=== PATIENT | male | born 2000 | race Caucasian/White ===

== ENCOUNTER 2019-04-14 19:05 | Emergency (ER) | payer MEDICAID, OTHER ==
[~2019-04-14] VITALS: Ht 185.4 cm; Wt 64.2 kg
[~2019-04-14 19:05] MED LIST: CEFP250S5; D-ME473S42; DOXY100C42 PO; TYLENOL; tylenol
--- NOTE | 2019-04-14 20:00 | ED Integumentary General ---
General Chief Complaint: Allergic Reaction Stated Complaint: [facility] Nursing Triage Note: STARTED TAKING NEW PRESCRIPTION BACTRIM TODAY FOR A "BITE ON HIS BACK" FEVER TODAY AT 1730 TOOK TYLENOL 1000 IS NOW AFEBRILE. Source: patient Exam Limitations: no limitations History of Present Illness Date Seen by Provider: Apr 14, 2019 Time Seen by Provider: 19:55 Initial Comments To ER come in by grandmother with reports of a suspected allergic reaction, he started Bactrim today for a suspected spider bite to the left mid back. He had a fever today up to 102. This began with a itchy bump to the left side of his back noticed yesterday, he does not recall anything biting him. He reports some general malaise and fever, body aches. He was seen by urgent care today given Bactrim. Timing/Duration: just prior to arrival Severity: moderate Location: torso Associated Symptoms: denies symptoms Allergies and Home Medications Allergies Coded Allergies: Fluticasone (Unverified Allergy, Mild, 04/17/09) Ibuprofen (Unverified Allergy, Mild, 04/17/09) Penicillins (Unverified Allergy, Mild, CAN TAKE CEPHALOSPORINS, 04/18/09) Salmeterol (Unverified Allergy, Mild, 04/17/09) Home Medications Doxycycline Monohydrate 100 Mg Capsule, 100 MG PO BID, (Reported) Patient Home Medication List Home Medication List Reviewed: Yes Review of Systems Review of Systems Constitutional: see HPI, chills, fever EENTM: see HPI Respiratory: no symptoms reported Cardiovascular: no symptoms reported Genitourinary: no symptoms reported Musculoskeletal: no symptoms reported Skin: no symptoms reported Psychiatric/Neurological: No Symptoms Reported Endocrine: No Symptoms Reported Hematologic/Lymphatic: No Symptoms Reported Past Yuabezn-Rorvnz-Hmusnl Hx Patient Social History Alcohol Use: Denies Use Recreational Drug Use: No Recent Foreign Travel: No Contact w/Someone Who Travel: No Recent Infectious Disease Expo: No Recent Hopitalizations: No Ebola Symptoms: Denies Symptoms Listed Physical Abuse: No Sexual Abuse: No Mistreated: No Fear: No Seasonal Allergies Seasonal Allergies: Yes ("YEAR ROUND" CLAIRITIN) Past Medical History Surgeries: No Respiratory: Yes Asthma Cardiac: No Neurological: No Reproductive Disorders: No Genitourinary: No Gastrointestinal: No Musculoskeletal: Yes (gets pain in legs at times) Endocrine: No HEENT: No Cancer: No Psychosocial: Yes (aspergers syndrome) Integumentary: Yes (FINE PINK RASH NOTED TO TORSO) Recent Skin Changes Blood Disorders: No Physical Exam Vital Signs Vital Signs - First Documented 04/14/19 19:20 Temp 36.9 Pulse 103 Resp 18 B/P (MAP) 109/62 Capillary Refill : General Appearance: WD/WN, no apparent distress Neck: non-tender, full range of motion Cardiovascular: no murmur, tachycardia (100) Respiratory: no respiratory distress, no accessory muscle use Neurologic/Psychiatric: alert, normal mood/affect, oriented x 3 Skin: normal color, warm/dry Skin Problem Character: other (to the left side of the spine is a 4 cm circular area of erythema with a purplish black necrotic tissue in the center measuring about 2 x 3 mm. He also has a fine maculopapular rash about his torso and extremities.) Progress/Results/Core Measures Results/Orders Lab Results Laboratory Tests Test 04/14/19 19:50 Range/Units White Blood Count 8.0 4.3-11.0 10^3/uL Red Blood Count 4.95 4.35-5.85 10^6/uL Hemoglobin 14.6 13.3-17.7 G/DL Hematocrit 44 40-54 % Mean Corpuscular Volume 88 80-99 FL Mean Corpuscular Hemoglobin 30 25-34 PG Mean Corpuscular Hemoglobin Concent 34 32-36 G/DL Red Cell Distribution Width 12.9 10.0-14.5 % Platelet Count 117 L 130-400 10^3/uL Mean Platelet Volume 11.9 H 7.4-10.4 FL Neutrophils (%) (Auto) 81 H 42-75 % Lymphocytes (%) (Auto) 10 L 12-44 % Monocytes (%) (Auto) 7 0-12 % Eosinophils (%) (Auto) 3 0-10 % Basophils (%) (Auto) 0 0-10 % Neutrophils # (Auto) 6.5 1.8-7.8 X 10^3 Lymphocytes # (Auto) 0.8 L 1.0-4.0 X 10^3 Monocytes # (Auto) 0.6 0.0-1.0 X 10^3 Eosinophils # (Auto) 0.2 0.0-0.3 10^3/uL Basophils # (Auto) 0.0 0.0-0.1 10^3/uL Prothrombin Time 14.4 12.2-14.7 SEC INR Comment 1.1 0.8-1.4 Sodium Level 138 135-145 MMOL/L Potassium Level 3.3 L 3.6-5.0 MMOL/L Chloride Level 103 98-107 MMOL/L Carbon Dioxide Level 24 21-32 MMOL/L Anion Gap 11 5-14 MMOL/L Blood Urea Nitrogen 14 7-18 MG/DL Creatinine 1.35 H 0.60-1.30 MG/DL Estimat Glomerular Filtration Rate > 60 BUN/Creatinine Ratio 10 Glucose Level 90 70-105 MG/DL Calcium Level 10.0 8.5-10.1 MG/DL Corrected Calcium 8.5-10.1 MG/DL Total Bilirubin 0.6 0.1-1.0 MG/DL Aspartate Amino Transf (AST/SGOT) 19 5-34 U/L Alanine Aminotransferase (ALT/SGPT) 16 0-55 U/L Alkaline Phosphatase 95 40-136 U/L Total Creatine Kinase 124 30-200 U/L C-Reactive Protein High Sensitivity 0.80 H 0.00-0.50 MG/DL Total Protein 7.7 6.4-8.2 GM/DL Albumin 4.9 H 3.2-4.5 GM/DL My Orders Orders - HERBERT PA APRN Cbc With Automated Diff (04/14/19 19:45) Comprehensive Metabolic Panel (04/14/19 19:45) Protime With Inr (04/14/19 19:45) Hs C Reactive Protein (04/14/19 19:55) Creatine Kinase (04/14/19 19:50) Vital Signs/I&O 04/14/19 19:20 Temp 36.9 Pulse 103 Resp 18 B/P (MAP) 109/62 Departure Impression Primary Impression: Toxic effect of venom of brown recluse spider, accidental (unintentional), initial encounter Disposition: 01 HOME, SELF-CARE Condition: Stable Departure-Patient Inst. Decision time for Depature: 19:58 Referrals: [facility] (PCP/Family) Primary Care Physician Patient Instructions: Skin Rash (DC), Spider Bites Add. Discharge Instructions: 1. You can stop the Bactrim but I don't think it will help because I don't think the Bactrim caused the rash to begin with. You do not need any antibiotics at this point, fevers may persist for a few days, rash will persist for a few days, the red spot on your back may in fact get larger. This warrants follow-up with your primary care doctor on Wednesday. Don't be surprised if this becomes painful instead of itchy in the next few days. Cool compresses will be helpful to limit further tissue damage by the venom. This wound may persist for several weeks. Please return to the emergency room tomorrow afternoon/evening for repeat exam with lab work. All discharge instructions reviewed with patient and/or family. Voiced understanding. HERBERT PA APRN Apr 14, 2019 20:00 POS
[2019-04-14 20:02] LABS: BASOPHILS % (AUTO) 0 % (0-10); EOSINOPHILS # (AUTO) 0.2 10^3/uL (0.0-0.3); EOSINOPHILS % (AUTO) 3 % (0-10); HEMATOCRIT 44 % (40-54); HEMOGLOBIN 14.6 G/DL (13.3-17.7); LYMPHOCYTES # (AUTO) 0.8 X 10^3 (1.0-4.0); LYMPHOCYTES % (AUTO) 10 % (12-44); MEAN CORPUSCULAR HEMOGLOBIN 30 PG (25-34); MEAN CORPUSCULAR HGB CONC 34 G/DL (32-36); MEAN CORPUSCULAR VOLUME 88 FL (80-99); MEAN PLATELET VOLUME 11.9 FL (7.4-10.4); MONOCYTES # (AUTO) 0.6 X 10^3 (0.0-1.0); MONOCYTES % (AUTO) 7 % (0-12); NEUTROPHILS # (AUTO) 6.5 X 10^3 (1.8-7.8); NEUTROPHILS % (AUTO) 81 % (42-75); PLATELET COUNT 117 10^3/uL (130-400); RED CELL DISTRIBUTION WIDTH 12.9 % (10.0-14.5)
[2019-04-14 20:15] LABS: INR 1.1 (0.8-1.4); PROTHROMBIN TIME PATIENT 14.4 SEC (12.2-14.7)
[2019-04-14 20:35] LABS: ALANINE AMINOTRANSFERASE 16 U/L (0-55); ALBUMIN 4.9 GM/DL (3.2-4.5); ALKALINE PHOSPHATASE 95 U/L (40-136); BILIRUBIN,TOTAL 0.6 MG/DL (0.1-1.0); BUN/CREATININE RATIO 10; CARBON DIOXIDE 24 MMOL/L (21-32); CHLORIDE 103 MMOL/L (98-107); CREATINE KINASE 124 U/L (30-200); CREATININE SERUM 1.35 MG/DL (0.60-1.30); GFR ESTIMATED > 60; GLUCOSE 90 MG/DL (70-105); POTASSIUM 3.3 MMOL/L (3.6-5.0); SODIUM 138 MMOL/L (135-145); TOTAL PROTEIN 7.7 GM/DL (6.4-8.2)
== END 2019-04-14 20:45 | disposition home or self-care (01) ==
LOC: EDUNIT# 19:05 → ER 19:06
DX: T63.331A Toxic effect of venom of brown recluse spider, accidental (unintentional), initial encounter (principal); J45.909 Unspecified asthma, uncomplicated; Z79.51 Long term (current) use of inhaled steroids; Z88.0 Allergy status to penicillin; Z88.6 Allergy status to analgesic agent; Z88.8 Allergy status to other drugs, medicaments and biological substances
CPT/HCPCS: 36415; 80053; 82550; 85025; 85610; 86141

== ENCOUNTER 2019-04-15 15:47 | Emergency (ER) | payer OTHER ==
[~2019-04-15] VITALS: Ht 185.5 cm; Wt 63.5 kg
--- NOTE | 2019-04-15 16:09 | ED Suture Removal/Wound Check ---
Suture/Wound Re-check Suture Removal/Wound Recheck : Progress Stable from yesterday. General Appearance: WD/WN, no apparent distress Skin Exam: normal color, warm/dry Physical Exam Vital Signs Vital Signs - First Documented 04/15/19 15:57 Temp 36.6 Pulse 80 Resp 18 B/P (MAP) 117/70 Pulse Ox 98 O2 Delivery Room Air Capillary Refill : General Appearance: WD/WN, no apparent distress HEENT: PERRL/EOMI, normal ENT inspection Neck: non-tender, full range of motion Cardiovascular: regular rate, rhythm, no murmur Respiratory: no respiratory distress, no accessory muscle use Neurologic/Psychiatric: alert, normal mood/affect, oriented x 3 Skin: normal color, warm/dry, rash, other (A of necrosis to the mid back about 1 x 3 cm yesterday is about the same today. The erythema around this however is much improved. The rash to the torso and extremities is about the same. He reports increasing fatigue today but no vomiting or fevers.) Departure Communication (Admissions) The case with Dr. Ambriz, agrees with plan of care Impression Primary Impression: Toxic effect of venom of brown recluse spider, accidental (unintentional), initial encounter Disposition: 01 HOME, SELF-CARE Condition: Stable Departure-Patient Inst. Decision time for Depature: 16:09 Referrals: [facility] (PCP/Family) Primary Care Physician Patient Instructions: Spider Bites Add. Discharge Instructions: 1. Follow-up with your doctor on Wednesday for recheck. Return to ER in the meantime for any concerns. All discharge instructions reviewed with patient and/or family. Voiced understanding. HERBERT PA APRN Apr 15, 2019 16:09 POS
[2019-04-15 16:14] LABS: BASOPHILS % (AUTO) 0 % (0-10); EOSINOPHILS # (AUTO) 0.4 10^3/uL (0.0-0.3); EOSINOPHILS % (AUTO) 9 % (0-10); HEMATOCRIT 44 % (40-54); HEMOGLOBIN 14.4 G/DL (13.3-17.7); LYMPHOCYTES # (AUTO) 1.3 X 10^3 (1.0-4.0); LYMPHOCYTES % (AUTO) 26 % (12-44); MEAN CORPUSCULAR HEMOGLOBIN 29 PG (25-34); MEAN CORPUSCULAR HGB CONC 33 G/DL (32-36); MEAN CORPUSCULAR VOLUME 89 FL (80-99); MEAN PLATELET VOLUME 11.4 FL (7.4-10.4); MONOCYTES # (AUTO) 0.6 X 10^3 (0.0-1.0); MONOCYTES % (AUTO) 11 % (0-12); NEUTROPHILS # (AUTO) 2.7 X 10^3 (1.8-7.8); NEUTROPHILS % (AUTO) 54 % (42-75); PLATELET COUNT 113 10^3/uL (130-400)
[2019-04-15 16:29] LABS: INR 1.1 (0.8-1.4); PROTHROMBIN TIME PATIENT 14.9 SEC (12.2-14.7)
[2019-04-15 16:37] LABS: ALANINE AMINOTRANSFERASE 18 U/L (0-55); ALBUMIN 4.4 GM/DL (3.2-4.5); ALKALINE PHOSPHATASE 98 U/L (40-136); BILIRUBIN,TOTAL 0.4 MG/DL (0.1-1.0); BUN/CREATININE RATIO 13; CALCIUM 9.1 MG/DL (8.5-10.1); CARBON DIOXIDE 23 MMOL/L (21-32); CHLORIDE 104 MMOL/L (98-107); CREATINE KINASE 80 U/L (30-200); CREATININE SERUM 1.25 MG/DL (0.60-1.30); GFR ESTIMATED > 60; GLUCOSE 119 MG/DL (70-105); POTASSIUM 3.8 MMOL/L (3.6-5.0); SODIUM 138 MMOL/L (135-145); TOTAL PROTEIN 7.2 GM/DL (6.4-8.2)
[2019-04-15 16:59] VITALS: BP 131/75
== END 2019-04-15 16:58 | disposition home or self-care (01) ==
LOC: EDUNIT# 15:47 → ER 15:49
DX: T63.331A Toxic effect of venom of brown recluse spider, accidental (unintentional), initial encounter (principal)
CPT/HCPCS: 36415; 80053; 82550; 85025; 85610; 86141